=== PATIENT | male | born 1995 | race Hispanic/Latino ===

== ENCOUNTER 2017-06-24 04:31 | Emergency (ER) | payer BC ==
[2017-06-24 05:00] VITALS: BP 154/63; PULSE 105; RESP 16; TEMP 98.2; O2SAT 97
--- NOTE | 2017-06-24 06:41 | ED PDOC ---
Upper Extremity Pain/Injury Time Seen by Provider: 06/24/17 05:01 Chief Complaint (Nursing): Finger,Hand,&Wrist Chief Complaint (Provider): Finger,Hand,&Wrist History Per: Patient History/Exam Limitations: no limitations Onset/Duration Of Symptoms: Mins (prior to arrival) Current Symptoms Are (Timing): Still Present Additional Complaint(s): 21 year old right hand dominant male with no significant medical history presents to the ED for evaluation of right hand injury, onset prior to arrival. Patient reports punching a wall and has no other complaints. PMD: Dr Ya - [place], [place] Past Medical History Reviewed: Historical Data, Nursing Documentation, Vital Signs Vital Signs: Last Vital Signs Temp 98.2 F 06/24/17 04:54 Pulse 105 H 06/24/17 04:54 Resp 16 06/24/17 04:54 BP 154/63 H 06/24/17 04:54 Pulse Ox 97 06/24/17 04:54 - Medical History PMH: No Chronic Diseases - Surgical History Surgical History: No Surg Hx - Family History Family History: States: Unknown Family Hx - Home Medications Home Medications: Ambulatory Orders Medication Instructions Recorded Naproxen [Naprosyn] 500 mg PO BID #30 tablet 06/24/17 - Allergies Allergies/Adverse Reactions: Allergies Allergy/AdvReac Type Severity Reaction Status Date / Time No Known Allergies Allergy Verified 06/24/17 05:00 Review of Systems ROS Statement: Except As Marked, All Systems Reviewed And Found Negative Musculoskeletal: Positive for: Hand Pain (right) Physical Exam - Reviewed Nursing Documentation Reviewed: Yes Vital Signs Reviewed: Yes - Physical Exam Appears: Positive for: Non-toxic, No Acute Distress Head Exam: Positive for: ATRAUMATIC, NORMOCEPHALIC Skin: Positive for: Normal Color, Warm, Dry Eye Exam: Positive for: EOMI, Normal appearance, PERRL Extremity: Positive for: Normal ROM (near full ROM at right wrist; neurovascularly intact), Swelling (over fifth metacarpal) Neurologic/Psych: Positive for: Alert, Oriented - ECG O2 Sat by Pulse Oximetry: 97 (RA) Pulse Ox Interpretation: Normal Medical Decision Making Medical Decision Making: Time: 05:09 Impression: boxer's fracture Initial Plan: --Motrin 600 mg PO --Right hand x-ray 7AM Patient with Boxer's Fracture, no significant angulation, no reduction needed. Patient placed in ulnar gutter and referred to hand surgery. Return precautions dicsused. Scribe Attestation: Documented by Litzy Logan, acting as a scribe for Jackson Coombs MD. Provider Scribe Attestation: All medical record entries made by the Scribe were at my direction and personally dictated by me. I have reviewed the chart and agree that the record accurately reflects my personal performance of the history, physical exam, medical decision making, and the department course for this patient. I have also personally directed, reviewed, and agree with the discharge instructions and disposition. Disposition - Clinical Impression Clinical Impression: Boxers fracture - Disposition Referrals: Rubin Causey MD [Medical Doctor] - Disposition: Routine/Home Disposition Time: 07:04 Condition: IMPROVED Prescriptions: Naproxen [Naprosyn] 500 mg PO BID #30 tablet Instructions: Boxer Fracture (ED) Forms: [employer] ([place])
--- NOTE | 2017-06-24 10:40 | RAD ---
PROCEDURE: Right Hand Radiographs. HISTORY: punched a wall, swelling to 5th digit COMPARISON: None. FINDINGS: BONES: Nondisplaced fracture distal 5th metacarpal with volar angulation of distal fragment. No other fracture identified. JOINTS: Normal. No osteoarthritic changes. SOFT TISSUES: Normal. OTHER FINDINGS: None. IMPRESSION: Angulated fracture distal 5th metacarpal diaphysis.
== END 2017-06-24 07:27 | disposition home or self-care (01) ==
LOC: H.ER 04:31
DX: S62.316A Displaced fracture of base of fifth metacarpal bone, right hand, initial encounter for closed fracture (principal); W22.8XXA Striking against or struck by other objects, initial encounter; Y92.89 Other specified places as the place of occurrence of the external cause